=== PATIENT | female | born 1990 | race African-American/Black ===

== ENCOUNTER 2018-10-14 13:20 | Inpatient (IN) ==
[2018-10-14] MEDS ORDERED: PITOCIN ONE (13:35)
[2018-10-14] MEDS ORDERED: CYTOTEC ONE (13:42)
[2018-10-14] MEDS ORDERED: CYTOTEC PO ONE (13:56)
[2018-10-14] MEDS ORDERED: PITOCIN 30 UNITS/NS 30 UNIT/500 ML IV.SOLN ONE (13:58)
[2018-10-14] MEDS ORDERED: PEPCID PO ONE (14:00)
[2018-10-14] MEDS ORDERED: KEFZOL 1 GM/D5W 1 GM/50 ML IVPB IV PRN (14:00)
[2018-10-14] MEDS ORDERED: LR 1,000 ML IV SCH ×2 (14:00)
[2018-10-14] MEDS ORDERED: STADOL IV PRN (14:00)
[2018-10-14] MEDS ORDERED: LR 500 ML IV ONE (14:00)
[2018-10-14] MEDS ORDERED: ZOFRAN IV PRN (14:00)
[2018-10-14] MEDS ORDERED: PEPCID IV PRN (14:00)
[2018-10-14] MEDS ORDERED: PEPCID PO PRN (14:00)
[2018-10-14] MEDS ORDERED: TYLENOL PO PRN (14:00)
[2018-10-14] MEDS ORDERED: REGLAN PO ONE (14:00)
[2018-10-14] MEDS ORDERED: SODIUM CHLORIDE 0.9% INJ SCH (14:00)
[2018-10-14] MEDS ORDERED: PITOCIN 30 UNITS/NS 30 UNIT/500 ML IV.SOLN IV SCH (14:30)
[2018-10-14 14:34] LABS: BASO# 0.02 X1000 (0.0-0.2); BASO% 0.1 % (0.0-0.8); EOS% 0.7 % (0.0-10.0); HEMATOCRIT 39.1 % (37.0-47.0); HEMOGLOBIN 13.4 g/dL (12.0-16.0); IMM GRAN# 0.08 X1000 (0.0-0.04); IMM GRAN% 0.6 % (0.0-0.5); LYMPH# 2.19 X1000 (1.2-3.4); LYMPH% 15.6 % (20.5-51.1); MCH 30.2 PG (27-31); MCHC 34.3 g/dL (33-37); MCV 88.3 FL (81-99); MONO# 1.26 X1000 (0.11-0.59); MPV 10.9 FL (7.4-10.4); NEUT# 10.38 X1000 (1.4-6.5); PLT 389 X1000 (130-400); RBC 4.43 XMIL (4.2-5.4); RDW 14.3 % (11.5-14.5); WBC 14.03 X1000 (4.8-10.8)
[2018-10-14] MEDS ORDERED: PERI MEDS (DERMOPLAST/NUPERCAINAL/TUCKS) MISC PRN (14:38)
[2018-10-14] MEDS ORDERED: CYTOTEC PO PRN (14:38)
[2018-10-14] MEDS ORDERED: M-M-R II VACCINE SUBQ ONE (14:38)
[2018-10-14] MEDS ORDERED: BENADRYL PO PRN (14:38)
[2018-10-14] MEDS ORDERED: BOOSTRIX VACCINE IM ONE (14:38)
[2018-10-14] MEDS ORDERED: XYLOCAINE-MPF 1% INJ PRN (14:38)
[2018-10-14] MEDS ORDERED: PITOCIN IM PRN (14:38)
[2018-10-14] MEDS ORDERED: COLACE PO PRN (14:39)
[2018-10-14] MEDS ORDERED: MORPHINE IV PRN (14:40)
[2018-10-14] MEDS ORDERED: MORPHINE IV ONE (15:00)
--- NOTE | 2018-10-14 15:03 | HISTORY AND PHYSICAL ---
CHIEF COMPLAINT: Water broke. HISTORY OF PRESENT ILLNESS: This is a 22-year-old, G1, P0, at 20 weeks and 5 days by an 8 week 5 day ultrasound ( consistent with stated ELENA, placing her at 18 weeks), arrived via ambulance with her baby partially delivered. Patient reports of calling 911 due to her water breaking. The patient denied any vaginal bleeding or abdominal cramping prior. The patient denied any recent abdominal trauma. The patient had an obstetrical history significant of an abnormal quad screen. The patient was also rubella non-immune. Upon presentation, the baby was noted to be in breech presentation with the body of the baby already delivered and the head undelivered. This is a patient of Dr. Hancock PAST MEDICAL HISTORY: Obesity. PAST SURGICAL HISTORY: Denied. PAST OBSTETRICAL HISTORY: G1, P0. Denied history of any prior miscarriages or abortions. TIPPLE TENDER HISTORY: Denied STDs or HIV. MEDICATIONS: vitamins. ALLERGIES: Red dye. SOCIAL HISTORY: Denied any tobacco, alcohol, or illicit drug use. Father of the baby (FOB) involved in . FAMILY HISTORY: Noncontributory. REVIEW OF SYSTEMS: Negative except as noted as above in HPI. PHYSICAL EXAMINATION: VITAL SIGNS: Weight 123.8 kg, height 5 feet 6 inches. Rest of vital signs reviewed at bedside GENERAL: No apparent distress. Tearful. Patient arrived with FOB and his mother CV: RRR PULMONARY: Clear to auscultation bilaterally. ABDOMEN: Soft. Nontender to palpation. Obese. PELVIC: Body of baby delivered with head still undelivered; with maternal pushing, head subsequently delivered. The umbilical cord was clamped and cut and baby was transferred. Umbilical cord was fragile and subsequently avulsed. Patient given 800 mcg of misoprostol p.o. awaiting delivery of retained placenta. LABORATORY: Pending. LABS: RPR nonreactive. Urine gonorrhea and chlamydia negative. Hepatitis B surface antigen nonreactive. Hepatitis C antibody nonreactive. HIV 1 and 2 antibody screen nonreactive. Rubella nonimmune. Maternal AFP screen abnormal. Screen positive for neural tube defects. Screen negative for Down syndrome. Risk for trisomy 18 less than 1%. ASSESSMENT AND PLAN: This is a 28-year-old G1, P0, now G1, P0-1-0-0, at 20 weeks and 5 days by an 8 week 5 day ultrasound, status post spontaneous vaginal delivery with: 1. PPROM, suspected cervical insufficiency, possible IUFD vs demise - I discussed the findings with the patient. The patient and family were very tearful and reacting appropriately. - History of present illness may suggest cervical insufficiency, especially considering patient having painless cervical dilation in 2nd trimester. - Given HPI, it is unclear whether the patient had an intrauterine demise or demise. - Gross examination of the fetus was done. male infant. No gross morphological features noted on baby. - Work up for possible IUFD ordered 2. s/p - Misoprostol 800 mcg was given to facilitate delivery of the placenta after umbilical cord avulsion. The patient was hemodynamically stable with minimal vaginal bleeding. - We will try to obtain records from Dr. Hancock's office. MTDD
[2018-10-14 15:05] LABS: HEMOGLOBIN A1C 5.5 % (4.8-6.0)
[2018-10-14] MEDS ORDERED: PITOCIN 20 UNITS/NS 20 UNITS/1,000 ML IV.SOLN ONE (15:41)
[2018-10-14] MEDS ORDERED: VENTOLIN HFA INH PRN (15:41)
--- NOTE | 2018-10-14 16:18 | OB/GYN PROGRESS NOTE ---
Progress Note OB - . Patient Problems: Current Active Problems Problem Status Onset (spontaneous vaginal delivery) Acute PPH ( hemorrhage) Acute OB Progress Note: Laboratory Results - last 24 hr 10/14/18 10/14/18 10/14/18 13:50 13:50 13:50 WBC 14.03 H RBC 4.43 Hgb 13.4 Hct 39.1 MCV 88.3 MCH 30.2 MCHC 34.3 RDW Std Deviation 14.3 Plt Count 389 MPV 10.9 H Immature Gran % (Auto) 0.6 H Neut % (Auto) 74.0 Lymph % (Auto) 15.6 L [place] % (Auto) 9.0 Eos % (Auto) 0.7 Baso % (Auto) 0.1 Immature Gran # (Auto) 0.08 H Neut # (Auto) 10.38 H Lymph # (Auto) 2.19 [place] # (Auto) 1.26 H Eos # (Auto) 0.10 Baso # (Auto) 0.02 Estimat Average Glucose 111 Hemoglobin A1c 5.5 TSH RPR NON-REACTIVE 10/14/18 13:50 WBC RBC Hgb Hct MCV MCH MCHC RDW Std Deviation Plt Count MPV Immature Gran % (Auto) Neut % (Auto) Lymph % (Auto) [place] % (Auto) Eos % (Auto) Baso % (Auto) Immature Gran # (Auto) Neut # (Auto) Lymph # (Auto) [place] # (Auto) Eos # (Auto) Baso # (Auto) Estimat Average Glucose Hemoglobin A1c TSH 1.40 RPR Patient doing well and currently resting. Since delivery of placenta, bleeding has been minimal. Fundus felt firm. VS wnl. Prelim labs reviewed. Awaiting CBC from after delivery of placenta. Will keep patient overnight due to PPH (~700cc) and to assess to see if she has any additional retained POC.
[2018-10-14 16:20] LABS: URINE SOURCE CATH
[2018-10-14 16:25] LABS: HEMATOCRIT 34.6 % (37.0-47.0); HEMOGLOBIN 11.7 g/dL (12.0-16.0); MCH 30.6 PG (27-31); MCHC 33.8 g/dL (33-37); MCV 90.6 FL (81-99); MPV 10.4 FL (7.4-10.4); RBC 3.82 XMIL (4.2-5.4); RDW 14.4 % (11.5-14.5); WBC 20.24 X1000 (4.8-10.8)
[2018-10-14] MEDS ORDERED: METHERGINE IV PRN (16:25)
[2018-10-14 16:31] LABS: BILIRUBIN URINE NEGATIVE (NEGATIVE); BLOOD URINE NEGATIVE (NEGATIVE); GLUCOSE URINE NEGATIVE (NEGATIVE); KETONE URINE 2+(Moderate) mg/dL (NEGATIVE); LEUKOCYTES URINE NEGATIVE (NEGATIVE); NITRITE URINE NEGATIVE (NEGATIVE); PH URINE 6.5; PROTEIN URINE TRACE mg/dL (NEGATIVE); SP GRAVITY URINE 1.015; UROBILINOGEN URINE 1 mg/dL
[2018-10-14 16:32] LABS: CLARITY CLEAR (CLEAR); COLOR YELLOW; UR AMPHETAMINES QUAL NONE DETECTED (NONE DETECT); UR BARBITUATES QUAL NONE DETECTED (NONE DETECT); UR BENZODIAZEPIN QUAL NONE DETECTED (NONE DETECT); UR CANNABINOIDS QUAL NONE DETECTED (NONE DETECT); UR COCAINE QUAL NONE DETECTED (NONE DETECT); UR METHADONE QUAL NONE DETECTED (NONE DETECT); UR METHAMPHETAMINE QUAL NONE DETECTED (NONE DETECT); UR OPIATES QUAL PRESUMPTIVE POSITIVE (NONE DETECT); UR OXYCODONE QUAL NONE DETECTED (NONE DETECT); UR PCP QUAL NONE DETECTED (NONE DETECT); UR PROPOXYPHENE QUAL NONE DETECTED (NONE DETECT); UR TCA QUAL NONE DETECTED (NONE DETECT)
--- NOTE | 2018-10-14 19:09 | OPERATIVE NOTE ---
PROCEDURE DATE: 10/14/2018 PREOPERATIVE DIAGNOSIS: 1. A 28-year-old, 1, para 0, at 20 weeks and 5 days by an 8 week 5 day ultrasound, with premature rupture of membranes, suspected cervical incompetence, with partially delivered breech baby. 2. Retained placenta. POSTOPERATIVE DIAGNOSIS: 1. A 28-year-old, 1, para 0-1-0-0, at 20 weeks and 5 days by an 8 week 5 day ultrasound, with premature rupture of membranes, suspected cervical incompetence, with partially delivered breech baby. 2. Retained placenta. Subsequent manual extraction. DATE OF DELIVERY: 10/14/2018. DELIVERY OF BABY: 1327. DELIVERY OF PLACENTA: 1454. PROCEDURE DETAILS: A 28-year-old, G1, P0, presented at 20 weeks and 5 days gestational age with partially delivered baby. Baby was noted to be in breech presentation with head undelivered. Patient reports having premature rupture of membranes. Patient denied any abdominal pain that may suggest labor onset. With maternal pushing, head was subsequently delivered. Umbilical cord was clamped and cut, and infant was transferred. Upon delivering placenta, umbilical cord a cord avulsion occurred given its fragile strength. Cytotec 800 mcg was given to facilitate delivery of placenta. Approximately 1 hour later, patient was noted to have significant vaginal bleeding. A pelvic exam was done with the placenta palpated at and near the cervical os. With maternal pushing, some of the placenta was delivered. The rest of the placenta was then manually extracted. Pelvic exam revealed no lacerations. Uterus was felt to be firm. EBL approximately 700 mL. Examination of the was done, revealing no abnormal morphological features. Infant was upon examination. Weight 15.8 ounces. Length 10.5 inches. Head circumference 7 inches. Foot length 1.5 inches. Patient tolerated delivery of infant and placenta with minimal discomfort. Placenta sent to pathology for chromosomal analysis. Sponge count correct. [facility]
[2018-10-14] MEDS: MOTRIN PO PRN (19:32)
[2018-10-14] MEDS ORDERED: ZOFRAN ODT PO PRN (20:14)
[2018-10-15] MEDS ORDERED: NORCO-5 PO PRN (02:47)
[2018-10-15] MEDS: MOTRIN PO PRN (04:31)
[2018-10-15 06:05] LABS: BASO# 0.02 X1000 (0.0-0.2); BASO% 0.1 % (0.0-0.8); EOS# 0.18 X1000 (0.0-0.7); EOS% 0.8 % (0.0-10.0); HEMATOCRIT 30.4 % (37.0-47.0); HEMOGLOBIN 10.2 g/dL (12.0-16.0); IMM GRAN# 0.17 X1000 (0.0-0.04); IMM GRAN% 0.8 % (0.0-0.5); LYMPH# 2.81 X1000 (1.2-3.4); LYMPH% 12.8 % (20.5-51.1); MCH 30.4 PG (27-31); MCHC 33.6 g/dL (33-37); MCV 90.7 FL (81-99); MONO# 1.84 X1000 (0.11-0.59); MONO% 8.4 % (1.7-9.3); MPV 10.3 FL (7.4-10.4); NEUT# 16.97 X1000 (1.4-6.5); NEUT% 77.1 % (42.2-75.2); PLT 321 X1000 (130-400); RBC 3.35 XMIL (4.2-5.4); RDW 14.3 % (11.5-14.5); WBC 21.99 X1000 (4.8-10.8)
[2018-10-15 06:06] LABS: LYMPHS 13 % (21-51); SEGS 79 % (42-75)
[2018-10-15 06:07] LABS: MONO 8 % (1-9)
--- NOTE | 2018-10-15 06:45 | OB/GYN PROGRESS NOTE ---
Progress Note OB - . Patient Problems: Current Active Problems Problem Status Onset (spontaneous vaginal delivery) Acute PPH ( hemorrhage) Acute OB Progress Note: Vital Signs - 24 hr 10/14/18 17:50 10/14/18 19:22 10/14/18 20:29 Temperature 99.3 F Pulse Rate 85 99 H 99 H Respiratory Rate 16 24 24 Blood Pressure 137/80 O2 Sat by Pulse Oximetry 97 100 100 10/14/18 23:58 10/15/18 04:00 Temperature 97.2 F L 96.5 F L Pulse Rate 86 79 Respiratory Rate 24 20 Blood Pressure 108/59 106/60 O2 Sat by Pulse Oximetry 96 97 Laboratory Results - last 24 hr 10/14/18 10/14/18 10/14/18 13:50 13:50 13:50 WBC 14.03 H RBC 4.43 Hgb 13.4 Hct 39.1 MCV 88.3 MCH 30.2 MCHC 34.3 RDW Std Deviation 14.3 Plt Count 389 MPV 10.9 H Immature Gran % (Auto) 0.6 H Neut % (Auto) 74.0 Lymph % (Auto) 15.6 L [place] % (Auto) 9.0 Eos % (Auto) 0.7 Baso % (Auto) 0.1 Immature Gran # (Auto) 0.08 H Neut # (Auto) 10.38 H Lymph # (Auto) 2.19 [place] # (Auto) 1.26 H Eos # (Auto) 0.10 Baso # (Auto) 0.02 Segmented Neutrophils Lymphocytes Monocytes Estimat Average Glucose 111 Hemoglobin A1c 5.5 TSH Urine Source Urine Color Urine Clarity Urine pH Ur Specific [place] Urine Protein Urine Ketones Urine Blood Urine Nitrite Urine Bilirubin Urine Urobilinogen Urine WBC Urine Glucose Urine Opiates Screen Ur Oxycodone Screen Urine Methadone Screen U Propoxyphene Qual Ur Barbituates Screen Ur Tricyclics Screen Ur Phencyclidine Scrn Ur Amphetamines Screen U Methamphetamines Scrn U Benzodiazepines Scrn Urine Cocaine Screen U Cannabinoids Screen RPR NON-REACTIVE Blood Type Antibody Screen 10/14/18 10/14/18 10/14/18 13:50 15:45 15:45 WBC RBC Hgb Hct MCV MCH MCHC RDW Std Deviation Plt Count MPV Immature Gran % (Auto) Neut % (Auto) Lymph % (Auto) [place] % (Auto) Eos % (Auto) Baso % (Auto) Immature Gran # (Auto) Neut # (Auto) Lymph # (Auto) [place] # (Auto) Eos # (Auto) Baso # (Auto) Segmented Neutrophils Lymphocytes Monocytes Estimat Average Glucose Hemoglobin A1c TSH 1.40 Urine Source CATH Urine Color YELLOW Urine Clarity CLEAR Urine pH 6.5 Ur Specific [place] 1.015 Urine Protein TRACE A Urine Ketones 2+(Moderate) A Urine Blood NEGATIVE Urine Nitrite NEGATIVE Urine Bilirubin NEGATIVE Urine Urobilinogen 1 Urine WBC NEGATIVE Urine Glucose NEGATIVE Urine Opiates Screen PRESUMPTIVE POSITIVE A Ur Oxycodone Screen NONE DETECTED Urine Methadone Screen NONE DETECTED U Propoxyphene Qual NONE DETECTED Ur Barbituates Screen NONE DETECTED Ur Tricyclics Screen NONE DETECTED Ur Phencyclidine Scrn NONE DETECTED Ur Amphetamines Screen NONE DETECTED U Methamphetamines Scrn NONE DETECTED U Benzodiazepines Scrn NONE DETECTED Urine Cocaine Screen NONE DETECTED U Cannabinoids Screen NONE DETECTED RPR Blood Type Antibody Screen 10/14/18 10/14/18 10/15/18 16:00 16:00 05:30 WBC 20.24 H 21.99 H RBC 3.82 L 3.35 L Hgb 11.7 L 10.2 L Hct 34.6 L 30.4 L MCV 90.6 90.7 MCH 30.6 30.4 MCHC 33.8 33.6 RDW Std Deviation 14.4 14.3 Plt Count 344 321 MPV 10.4 10.3 Immature Gran % (Auto) 0.8 H Neut % (Auto) 77.1 H Lymph % (Auto) 12.8 L [place] % (Auto) 8.4 Eos % (Auto) 0.8 Baso % (Auto) 0.1 Immature Gran # (Auto) 0.17 H Neut # (Auto) 16.97 H Lymph # (Auto) 2.81 [place] # (Auto) 1.84 H Eos # (Auto) 0.18 Baso # (Auto) 0.02 Segmented Neutrophils 79 H Lymphocytes 13 L Monocytes 8 Estimat Average Glucose Hemoglobin A1c TSH Urine Source Urine Color Urine Clarity Urine pH Ur Specific [place] Urine Protein Urine Ketones Urine Blood Urine Nitrite Urine Bilirubin Urine Urobilinogen Urine WBC Urine Glucose Urine Opiates Screen Ur Oxycodone Screen Urine Methadone Screen U Propoxyphene Qual Ur Barbituates Screen Ur Tricyclics Screen Ur Phencyclidine Scrn Ur Amphetamines Screen U Methamphetamines Scrn U Benzodiazepines Scrn Urine Cocaine Screen U Cannabinoids Screen RPR Blood Type O POSITIVE Antibody Screen NEGATIVE No complaints, denies orthostatic symptoms, normal lochia. A&O NAD CTAB RRR S/ND/fundus firm Normal lochia No C/C/E PPD 1 s/p at 20wks of stillborn doing well - D/C home - follow up Dr. Bonner 6 wks or prn.
[2018-10-15 07:20] VITALS: BP 97/68
[2018-10-15] MEDS ORDERED: PRECARE PO SCH (09:00)
--- NOTE | 2018-10-15 16:06 | HISTORY AND PHYSICAL ---
ADDENDUM: This is an addendum to the patient's H and P, job #[id number]. This is to make a correction on the history of present illness section: "...NOT consistent with stated ELENA." [facility]
== END 2018-10-15 12:38 | disposition home or self-care (01) | DRG 805 ==
LOC: P.NBC 13:20 → P.LD 13:21
PROVIDERS: ADMIT Obstetrics & Gynecology Obstetrics; ATTEND Obstetrics & Gynecology Obstetrics